=== PATIENT | female | born 1970 | race Caucasian/White ===

== ENCOUNTER 2017-01-07 10:47 | Emergency (ER) | payer MEDICARE, MEDICAID ==
[~2017-01-07] VITALS: Ht 157.5 cm; Wt 56.8 kg
--- NOTE | 2017-01-07 11:04 | ED.REPORT ---
HPI-General Illness Date of Service Jan 07, 2017 ED Provider: Dr. Eamon Contreras The patient is a 46 year old female who presents to the ED due to 9/10 stomach pain for the past year. C/o associated vomiting and denies diarrhea. She has seen a doctor in [place] recently at which time there were no acute findings for her symptoms. She does not take any medication and denies allergies. Pt is a poor historian. Nursing Notes Stated Complaint: ABDOMINAL PAIN Nursing Notes Reviewed: Yes Allergies: Coded Allergies: No Known Allergies (Unverified , 01/07/17) No Active Prescriptions or Reported Meds General Time Seen by MD: 11:04 Chief Complaint Abdominal pain Hx Obtained From: Patient Arrived By: Walk-in Sudden in Onset?: Yes Onset Occurred: More than a week ago... (1 year) Symptom Duration: Since onset Location: : Abdomen Quality: Painful Radiation: : Does not radiate Severity: Current: Pain level 9 out of 10 Associated with: Reports: Vomiting Recent Healthcare: Recent doctor visit Similar Sx Previous: Yes Past Medical History Past Medical History denies Past Surgical History hysterectomy Smoking History Current Every Day Smoker Social History Alcohol Use: Denies alcohol use Drug Use: Denies drug use Other Social History: Good social support, From out of town ([place]) Ambulatory Status Independent Review of Systems Full Review of Systems GI: Reports: Abdominal pain, Vomiting, Denies: Diarrhea Complete sys rev & neg: except as marked. Physical Exam Vital Signs Vital Signs Date Time Temp Pulse Resp B/P Pulse Ox O2 Delivery O2 Flow Rate FiO2 01/07/17 11:12 36.6 69 20 146/94 98 reviewed Initial VS: Reviewed General/Constitutional: Awake, Alert Behavior: Positive: Agitated, Restless Head / Eyes: Atraumatic, Normocephalic, PERRL, EOMI ENT: Atraumatic, Airway patent Neck: Atraumatic, Supple Respiratory / Chest: Atraumatic, No respiratory distress Cardiovascular: Heart rate NL, Regular rhythm, Heart sounds NL Abdomen: No guarding, No rebound Tenderness/Guarding/Rebound: Negative: Adam's sign positive upper abdominal tenderness Upper Extremities Upper Extremity / MS: Atraumatic, Inspection NL, No deformity Lower Extremity / Pelvis / MS: Atraumatic, Inspection NL, No deformity Skin: Atraumatic, Warm, Dry Neurologic: Oriented X3, Speech NL Interpretation & Diagnostics Lab Results Interpretation Result Diagram: 01/07/17 1145 01/07/17 1145 Test 01/07/17 11:30 01/07/17 11:45 Hold Urine Received (Received) White Blood Count 5.8th/mm3 (3.8-10.1) Red Blood Count 4.73mil/mm3 (3.90-5.20) Hemoglobin 14.2g/dL (12.0-15.6) Hematocrit 41.8% (35.0-46.0) Mean Corpuscular Volume 88.4fL (81-100) Mean Corpuscular Hemoglobin 30.0pg (27.0-35.0) Mean Corpuscular Hemoglobin Concent 34.0% (32.0-37.0) Red Cell Distribution Width 12.4% (12.3-15.4) Platelet Count 316bil/L (150-400) Neutrophils (%) (Auto) 60.5% (40-74) Lymphocytes (%) (Auto) 29.5% (14-46) Monocytes (%) (Auto) 7.9% (4-12) Eosinophils (%) (Auto) 1.6% (0-5) Basophils (%) (Auto) 0.3% (0-3) Sodium Level 140mEq/L (134-144) Potassium Level 4.6mEq/L (3.5-5.2) Chloride Level 107mEq/L (97-108) Carbon Dioxide Level 20mmol/L (18-29) Blood Urea Nitrogen 16mg/dL (6-24) Creatinine 0.64mg/dL (0.57-1.00) Estimat Glomerular Filtration Rate 142mL/min (>59) Glucose Level 113mg/dL (60-99) Calcium Level 9.6mg/dL (8.5-10.1) Magnesium Level 2.0mg/dL (1.6-2.6) Total Bilirubin 0.3mg/dL (0.0-1.2) Aspartate Amino Transf (AST/SGOT) 19U/L (0-50) Alanine Aminotransferase (ALT/SGPT) 32U/L (0-32) Alkaline Phosphatase 64U/L (25-150) Total Protein 7.3g/dL (6.4-8.4) Albumin 4.2g/dL (3.4-5.0) Lipase 40U/L (13-60) Alcohols < 10mg/dL (0-10) Lab Results Interpretation: Urine Dip: neg MET + AMP + Re-Eval/Medical Decision Med Decision/Clinical Course Nonspecific abdominal pain. No obvious identifiable source. Abdominal exam benign, labs and imaging reassuring. Should be noted her urine drug screen is positive for methamphetamine despite denying this. Patient will be discharged with Pepcid. Return in follow-up precautions given. Summary of Info: Records from [facility], 04/30/2016 CT Abdomen Pelvis w/ Contrast: Impression: No acute intar-abdominal finding Sangeetha Salgado MD 04/30/2016 Re-Evaluation/Progress Note: labs are reassuring and CT scan... Counseled Regarding: Diagnosis, Lab results, Need for follow-up, When/why to return to ED Discharge & Departure Primary Impression: Pain, abdominal, nonspecific Disposition: Home Discharge Condition All VS Reviewed: Yes Condition: Stable Additional Instructions: Thank you for entrusting us with your care today. There are no acute findings for your symptoms. Begin taking Pepcid. Follow up with your primary care physician. Return to the Emergency Department if you experience any new or worsening symptoms. Referrals: [facility] Scribe Attestation Portion of this note were transcribed by Urszula Grace. I, Dr. Contreras, personally performed the history, physical exam, and medical decision-making: I reviewed and confirmed the accuracy for the information in the transcribed note. Signed by: bharat Foster, 01/07/17 1300 copies to: [facility] Eamon Contreras DO Jan 07, 2017 11:04 Urszula Grace Jan 07, 2017 11:18
[2017-01-07 11:12] VITALS: BP 146/94; PULSE 69; RESP 20; O2SAT 98
[2017-01-07] MEDS ORDERED: 0.9% Sodium Chloride 1,000 ML IV ONE (11:16)
[2017-01-07] MEDS ORDERED: LidocaineVisc 2%:Antacid 1:1 10 mL Syringe PO ONE (11:20)
[2017-01-07] MEDS ORDERED: Ondansetron 2 mg/mL 2 mL Inj IVPUSH PRN (11:20)
[2017-01-07] MEDS ORDERED: Iohexol 300 mg/mL 30 mL Inj PO ONE (11:20)
[2017-01-07 11:54] LABS: BASOPHILS % (AUTO) 0.3 % (0-3); EOSINOPHILS % (AUTO) 1.6 % (0-5); MONOCYTES % (AUTO) 7.9 % (4-12); Mean Corpuscular Volume 88.4 fL (81-100); NEUTROPHILS % (AUTO) 60.5 % (40-74); Platelet Count 316 bil/L (150-400)
--- NOTE | 2017-01-07 13:29 | DRSVH ---
PROCEDURE: CT ABDOMEN AND PELVIS WITH CONTRAST ([id number]) INDICATIONS: upper abd pain TECHNIQUE: After the administration of oral and intravenous contrast, 5 mm thick sections acquired from the diap hragms to the symphysis. 5 mm thick coronal and sagittal reformats were performed. For radiation do se reduction, the following was used: automated exposure control, adjustment of mA and/or kV accordi ng to patient size. COMPARISON: None. FINDINGS: Image quality: Excellent. ABDOMEN: Lung bases: Lung bases are clear. Heart size is normal. Solid organs: There is hepatic steatosis otherwise liver and spleen are normal in size and enhancemen t. Gallbladder negative. Biliary system is non-dilated. Pancreas enhances normally. No adrenal no dules. Kidneys are normal in size and enhancement, without hydronephrosis. Peritoneum and bowel: Stomach, small bowel, and colon loops are normal in caliber and wall thickness . No free fluid or air. Appendix probably normal in the right lower quadrant although not definitely visualized. No suspicious pericecal inflammatory changes. There is moderate stool Nodes and vessels: No retroperitoneal or mesenteric adenopathy. Aorta and inferior vena cava are no rmal in caliber. Miscellaneous: No ventral hernias. PELVIS: Genitourinary: Bladder is decompressed otherwise unremarkable Miscellaneous: No inguinal hernias or adenopathy. Bones: No suspicious bony lesions. No vertebral body compression fractures. IMPRESSION: Overall, no acute abnormality. No specific visualized etiology of upper abdominal pain. Normal appearance of the appendix. Hepatic steatosis. Dictated by: Sage Khanna M.D. on 01/07/2017 at 13:23 Approved by: Sage Khanna M.D. on 01/07/2017 at 13:27
[2017-01-07 13:38] VITALS: BP 140/82; PULSE 62; RESP 15; O2SAT 99
[2017-01-07] MEDS ORDERED: FAMO40TA72 PO (13:38)
[2017-01-07 13:40] VITALS: BP 140/82; PULSE 62; RESP 15; O2SAT 99
== END 2017-01-07 13:44 | disposition home or self-care (01) ==
LOC: SED 10:47
DX: R10.10 Upper abdominal pain, unspecified (principal); R11.10 Vomiting, unspecified; F17.200 Nicotine dependence, unspecified, uncomplicated
CPT/HCPCS: 36415; 74177; 80053; 81025; 83690; 83735; 85025; 96361; 96374; 99285; G0480; J2405; J7030; Q9967